=== PATIENT | female | born 1950 | race Caucasian/White ===

== ENCOUNTER 2017-01-23 15:59 | Inpatient (IN) | payer MEDICARE ==
[~2017-01-23] VITALS: Ht 154.9 cm; Wt 58.2 kg
[~2017-01-23 15:59] MED LIST: ACET-2321 PO; ALBU8.5H INH; CRAN200C4; DOXY100C40 PO; GLIM1TAB2 PO; IBUP-1724 PO; METF-200 PO; PRAV40TA46 PO
--- OUTSIDE RECORDS SUMMARY | 2017-01-23 16:04 | XMS REPORT | Continuity of Care Document ---
Author Author [facility] Organization [facility] Address Unknown Phone Unavailable Allergies Medications Problems Procedures Results Encounters ACCT No. Visit Date/Time Discharge Status Pt. Type Provider Facility Loc./Unit Complaint [id number] 12/07/2013 07:59:00 12/07/2013 23 :59:59 CLS Outpatient
--- OUTSIDE RECORDS SUMMARY | 2017-01-23 16:04 | XMS REPORT | Continuity of Care Document ---
Author Author [facility] Address Unknown Phone Unavailable Care Team Providers Care Rehab Liaison Name Role Phone ELISA GRAY MD Primary Care Physician [phone] Insurance Providers Guarantor Christie Mejias Address [address] [place] [address] Email [email or web address] Payer Medicare Policy Number [id number] Subscriber's Name Jose DChristie Relationship 18 Self Payer [facility] Policy Number [id number] Subscriber's Name Christie Mejias Aysha Relationship 18 Self Group Number [id number] Chief Complaint and Reason for Visit Chief Complaint Female Urogenital Problems Reason for Visit Fever Tachycardia Vomiting Problems Active Problems Medical Problem Onset Date Status Pedersen's palsy Unknown Acute Past Problems Medical Problem Onset Date Acute bronchitis Unknown Fever Unknown Tachycardia Unknown Vomiting Unknown Medications Current Home Medications Medication Dose Units Route Directions Days Qty Instructions Start Date Acetaminophen (Tylenol) 325 Mg Tablet 1 Tab Oral Every 4 Hours Prn 30 Tablet 01/23/17 Cranberry Extract (Cranberry) 200 Mg Capsule 01/23/17 Glimepiride 1 Mg Tablet 1 Tab Oral Twice A Day BEST TAKEN WITH BREAKFAST. 07/16/15 Ibuprofen 200 Mg Tablet 1 Tab Oral Every 4 Hours as needed for Pain 01/23/17 Metformin Hcl 500 Mg Tablet 1,000 Mg Oral Twice A Day 07/29/09 Pravastatin Sodium 40 Mg Tablet 40 Mg Oral Twice A Day 07/14/12 Past Home Medications Medication Directions Ordered Status Pravastatin Sodium 20 Mg Tablet, 20 Mg Oral Daily 07/29/09 Discontinued Social History Social History Problem Response Recorded Date/Time Onset Date Status Chewing Tobacco Status No 07/22/2012 2:24pm Not Applicable Not Applicable Hx Substance Use No 07/16/2015 5:20pm Not Applicable Not Applicable Hx Alcohol Use Y wine 1xmonth 07/16/2015 5:20pm Not Applicable Not Applicable Has the pt used tobacco in the last 12 months No 07/15/2012 6:33am Not Applicable Not Applicable Tobacco Usage none 07/16/2015 6:48pm Not Applicable Not Applicable Hospital Discharge Instructions No hospital discharge instructions. Plan of Care Discharge Date 01/23/17 3:40pm Disposition [address] [facility] Condition at Discharge Stable Prescriptions See Medication Section Referrals ELISA GRAY MD Address: [address] [place] [address] [phone] Additional Instructions/Education Go to [facility] emergency department from here. Functional Status No functional status results. Allergies, Adverse Reactions, Alerts Allergen Type Severity Reaction Status Last Updated No Known Drug Allergies Allergy Unknown Active 01/23/17 Immunizations Query Response on File Recorded Date/Time Hx Influenza Vaccination Y JUN 2012 07/16/15 5:20pm Hx Pneumococcal Vaccination Yes 07/16/15 5:20pm Hx Influenza Vaccination Y JUN 2012 07/16/15 5:20pm Influenza Vaccine Hx FEBRUARY 2016 01/23/17 3:25pm Vital Signs Acute Vital Signs Vital Response Date/Time Temperature (Fahrenheit) 99.4 deg F (96.8 - 99.1) 01/23/2017 3:16pm Temperature (Calculated Celsius) 37.06231 degrees C (36.0 - 37.3) 01/23/2017 3:16pm Pulse Rate (adult) 130 bpm (60 - 100) 01/23/2017 3:16pm Respiratory Rate 20 breaths/min (10 - 20) 01/23/2017 3:16pm O2 Sat by Pulse Oximetry 96 % (90 - 100) 01/23/2017 3:16pm Blood Pressure 109/76 mm Hg 01/23/2017 3:16pm Height (Feet) 4 feet 01/03/2017 11:38am Height (Inches) 60.50 inches 01/23/2017 3:16pm Weight (Kilograms) 54.400 kg 01/23/2017 3:16pm Body Mass Index (BMI) 23.0 01/23/2017 3:16pm Results No known relevant diagnostic tests, laboratory data and/or discharge summary. Procedures No known history of procedures. Encounters Encounter Location Arrival/Admit Date Discharge/Depart Date Attending Provider Departed Emergency Room [facility] 01/23/17 3:15pm 01/23/17 3: 40pm TODD JOSUE APRN Departed Emergency Room [facility] 01/03/17 10:20am 01/03/17 11: 47am SALIMA CADET APRN Recent Diagnosis
--- NOTE | 2017-01-23 16:10 | NUR ---
PROVIDER Mike CARLTON SERVICE TESTER IN TO SEE PATIENT.
[2017-01-23] MEDS ORDERED: CRAN425C PO (16:14)
[2017-01-23] MEDS ORDERED: ACET-2890 PO (16:14)
[2017-01-23] MEDS ORDERED: NORMAL SALINE 1,000 ML IV ONE (16:15)
[2017-01-23] MEDS ORDERED: GLIM4TAB3 PO (16:16)
--- NOTE | 2017-01-23 16:25 | ERPDOC ---
Departure Disposition Decision Date: Jan 23, 2017 Disposition Decision Time: 18:45 Disposition: 02 TO [facility] Impression Impression Impression: Primary Impression: Sepsis Sepsis type: sepsis due to unspecified organism Qualified Codes: A41.9 - Sepsis, unspecified organism Additional Impression: UTI (urinary tract infection) Urinary tract infection type: acute cystitis Severity: Mild Condition: Stable Seen By: Mid-level only Referrals: ELISA GRAY MD (PCP/Family) Problems/Meds/Labs Reviewed?: Yes Medications reviewed and manag: Yes Follow up care ordered?: Yes Mental Status: Alert HPI - Fever General Chief Complaint: Fever Stated Complaint: FEVER,VOMITING,POSS UTI Time Seen by Provider: 16:03 Source: patient Exam Limitations: no limitations HPI - Fever Initial Comments Christie was seen initially at the [facility] clinic and was directed to report to the Emergency Department. Today she had a fever of 104.7. She took a cold shower prior to coming to the ED. She reports vomiting yesterday and also today. She also has dysuria and believes she has a urinary tract infection. She is still eating and drinking well, however she is very thirsty. She also reports increase in sciatica pain to her right side. She denies being around anyone else who has been ill. She denies chest pain or shortness of air. She denies bloody emesis or stool, also denies diarrhea. She has no significant PMH other than diabetes. She was recently treated for Bronchitis at the [facility], she is still coughing up some sputum. Occurred At: home Onset: Gradual Duration: 12-24 hrs Fever Quality: low grade Associated Symptoms: nausea/vomiting Allergies: Coded Allergies: No Known Drug Allergies (Verified Allergy, Unknown, 01/23/17) Past History Patient Medical History Problem List Updates: Diabetes Mellitus Patient Surgical History Bunionectomies vaginal prolapse repair tubal ligation adhesion repair hysterectomy cholecystectomy Past Medical History Metabolic: diabetes, hypercholesterolemia Surgical History General: gallbladder Reproductive/: hysterectomy, tubal ligation Joint: foot Family History Family PMH: FOUND: diabetes, other Vaccines Hx Influenza Vaccination: Yes (JUN 2012) Hx Pneumococcal Vaccination: Yes Social History Smoking Status: Never smoker Second Hand Exposure: Yes (HX ) Substance Use Type: does not use Alcohol Intake: occasionally Review of Systems Constitutional Constitutional: chills, fever Pulmonary Respiratory: cough, sputum General: burning, dysuria Musculoskeletal General: pain (sciatica) All other Systems All Other Systems: Reviewed and Negative Physical Exam General General Nourishment: well nourished General Body Habitus: well groomed Vitals and Pain First Documented Vital Signs Date Time Temp Pulse Resp B/P Pulse Ox O2 Delivery O2 Flow Rate FiO2 01/23/17 16:01 99.3 112 24 126/57 96 Room Air Weight: Kilograms: 56.100 Height (feet): 5 Height (inches): 3.00 Triage Pain Scale: Normal Exams: Head: Normocephalic w/o trauma Chest/Resp: Clear all abdul CV: Regular rate and rhythm, Pulses 2+ all extremities, no pedal edema noted Abdomen: Bowel sounds positive, soft, non-tender Integumentary: No rashes Neurologic: Patient is alert, and oriented Eyes (brief) Eyes Brief: found: EOMI Integumentary (brief) Integumentary Brief: FOUND: dry, pink, warm Psychiatric (brief) Psychiatric Brief: FOUND: alert, normal affect, oriented Differential Diagnoses Considering: Chronic Bronchitis, Pyelonephritis, UTI Progress Results/Orders Orders Procedure Category Date Status Time Lactate - Lactic Acid LAB 01/23/17 Complete 16:09 Blood Culture CARISSA 01/23/17 In Process 16:09 Cbc W/Auto LAB 01/23/17 Complete Diff-Reflex Manual 16:09 Cmp - Comprehensive LAB 01/23/17 Complete Metabolic 16:09 Procalcitonin LAB 01/23/17 Complete 16:09 Iv Lock (Ed Only) EDM 01/23/17 Transmitted 16:09 Chest, Pa & Lateral RAD 01/23/17 Taken 16:09 Normal Saline (Normal PHA 01/23/17 Complete Saline Iv) 16:15 Ceftriaxone I.V. (Er PHA 01/23/17 Complete Use Only) (Rocephin 17:30 UA, LAB 01/23/17 In Process Dip&Micro(Complete) & 18:26 Lab Results Laboratory Tests Test 01/23/17 16:25 01/23/17 16:31 01/23/17 18:26 White Blood Count 14.9T/MM3 Red Blood Count 4.28M/MM3 Hemoglobin 12.6GM/DL Hematocrit 37.5% Mean Corpuscular Volume 87.6UM3 Mean Corpuscular Hemoglobin 29.4UUG Mean Corpuscular Hemoglobin Concent 33.6GM/DL RDW Standard Deviation 42.3FL Platelet Count 274T/MM3 Mean Platelet Volume 9.5UM3 Immature Granulocyte % (Auto) % Neutrophils (%) (Auto) % Lymphocytes (%) (Auto) % Monocytes (%) (Auto) % Eosinophils (%) (Auto) % Basophils (%) (Auto) % Absolute Immature Granulocyte (auto T/MM3 Absolute Neutrophils (auto) T/MM3 Absolute Lymphocytes (auto) T/MM3 Absolute Monocytes (auto) T/MM3 Absolute Eosinophils (auto) T/MM3 Absolute Basophils (auto) T/MM3 Neutrophils % (Manual) 82.0% Band Neutrophils % 6.0% Lymphocytes % (Manual) 1.0% Monocytes % (Manual) 11.0% Absolute Neutrophils (Manual) 12.2T/MM3 Band Neutrophils # 0.9T/MM3 Lymphocytes # (Manual) 0.1T/MM3 Monocytes # (Manual) 1.6T/MM3 Red Cell Morphology Comment Normal Turbidity < 20 Sodium Level 139MEQ/L Potassium Level 4.4MEQ/L Chloride Level 104MEQ/L Carbon Dioxide Level 23MEQ/L Anion Gap 12MEQ/L Blood Urea Nitrogen 20.0MG/DL Creatinine 1.0MG/DL Glomerular Filtration Rate Calc 55 BUN/Creatinine Ratio 20RATIO Glucose Level 292MG/DL Calculated Osmolality 282MOSM/KG Calcium Level 9.7MG/DL Total Bilirubin 1.10MG/DL Icterus Index < 2 Aspartate Amino Transf (AST/SGOT) 85U/L Alanine Aminotransferase (ALT/SGPT) 111U/L Alkaline Phosphatase 118U/L Total Protein 5.9G/DL Albumin 3.3G/DL Globulin 2.6G/DL Albumin/Globulin Ratio 1.3RATIO Plasma Lactate 2.0MMOL/L Procalcitonin 5.72NG/ML Chemistry Specimen Hemolysis 36 Urine Collection Type Urine Color Yellow Urine Turbidity Cloudy Urine pH 6.0 Urine Specific [place] <=1.005 Urine Protein 1+ Urine Glucose (UA) Trace Urine Ketones Negative Urine Blood 2+ Urine Nitrite Positive Urine Bilirubin Negative Urine Urobilinogen 0.2EU/DL Urine Leukocyte Esterase 3+ Urine RBC 20-30/HPF Urine WBC 30-50/HPF Urine Squamous Epithelial Cells 0-5 Urine Bacteria 2+ Urine Culture Indicated Cult reflexed &setup Medications Current ED Medications Sodium Chloride 1,000 ml @ 999 mls/hr Q1H1M ONCE IV Last administered on 16:34; Start 01/23/17 at 16:15; Stop 01/23/17 at 17:15; Status DC Ceftriaxone Sodium/Sodium Chloride (Rocephin/NS) 100 ml @ 100 mls/hr O ONCE IV Last administered on 01/23/17 17:40; Start 01/23/17 at 17:30; Stop at 18:29; Status DC Progress Progress 1840- patient meets sepsis criteria including urinary tract infection, tachycardia, leukocytosis, elevated Pro calcitonin. Following 1 liter of IV fluid. She continues to be tachycardic 105-110. 1850- Spoke with Dr Joshi Tele hospitalist. He will admit for sepsis and UTI. HAILEY CARLTON APRN Jan 23, 2017 16:25
--- OUTSIDE RECORDS SUMMARY | 2017-01-23 16:30 | XMS REPORT | Continuity of Care Document ---
Author Author [facility] Organization [facility] Address Unknown Phone Unavailable Allergies Medications Problems Procedures Results Encounters ACCT No. Visit Date/Time Discharge Status Pt. Type Provider Facility Loc./Unit Complaint [id number] 12/07/2013 07:59:00 12/07/2013 23 :59:59 CLS Outpatient
[2017-01-23 16:42] LABS: HCT - HEMATOCRIT 37.5 % (36-46); HGB - HEMOGLOBIN 12.6 GM/DL (12-16); MEAN CORPUSCULAR HGB 29.4 UUG (26-34); MEAN CORPUSCULAR HGB CONC(MCHC 33.6 GM/DL (31-37); MEAN CORPUSCULAR VOLUME 87.6 UM3 (80-100); MEAN PLATELET VOLUME 9.5 UM3 (9.4-12.4); RED BLOOD COUNT 4.28 M/MM3 (4.00-5.20); WBC - WHITE BLOOD COUNT 14.9 T/MM3 (4.5-11.0)
--- NOTE | 2017-01-23 16:49 | NUR ---
TO XRAY PER CART.
[2017-01-23 16:54] LABS: ALBUMIN 3.3 G/DL (3.5-5.0); ALBUMIN/GLOBULIN RATIO 1.3 RATIO (1.1-2.2); ALKALINE PHOSPHATASE 118 U/L (38-126); ALT (SGPT) 111 U/L (9-52); ANION GAP 12 MEQ/L (5-15); AST (SGOT) 85 U/L (14-36); BUN/CREATININE RATIO 20 RATIO (6-26); CALCIUM 9.7 MG/DL (8.4-10.2); CHLORIDE 104 MEQ/L (98-107); CO2 - CARBON DIOXIDE 23 MEQ/L (22-30); GLOMERULAR FILTRATION RATE 55; GLUCOSE 292 MG/DL (65-110); POTASSIUM 4.4 MEQ/L (3.6-5); SODIUM 139 MEQ/L (134-144); TOTAL PROTEIN 5.9 G/DL (6.3-8.2)
[2017-01-23 17:00] LABS: BAND NEUTROPHILS # 0.9 T/MM3; LYMPHOCYTES # (MANUAL) 0.1 T/MM3 (1-4.8); MONOCYTES # (MANUAL) 1.6 T/MM3 (0-0.8); NEUTROPHILS #(MANUAL)-ABSOLUTE 12.2 T/MM3 (1.8-7.7); TOTAL CELLS COUNTED 100 %
--- NOTE | 2017-01-23 17:00 | NUR ---
BACK FROM XRAY
--- NOTE | 2017-01-23 17:09 | NUR ---
ELIMINATION PATIENT UP TO BR TO ATTEMPT TO VOID. UNABLE TO URINATE AT THIS TIME. PATIENT STATED THAT SHE WOULD WAIT A LITTLE BIT AND THAN TRY AGAIN LATER.
[2017-01-23] MEDS ORDERED: CEFTRIAXONE I.V. (ER USE ONLY) 1 G in NORMAL SALINE 100 ML IV ONE (17:30)
[2017-01-23 18:33] LABS: BLOOD, URINE 2+ (NEGATIVE); COLOR,URINE YELLOW (YELLOW); LEUKOCYTE ESTERASE ,URINE 3+ (NEGATIVE); NITRITE,URINE POSITIVE (NEGATIVE); UROBILINOGEN,URINE 0.2 EU/DL (NORMAL)
[2017-01-23 18:42] LABS: BACTERIA,URINE 2+ (NEGATIVE); RBC,URINE 20-30 /HPF (0-3); SQUAMOUS EPITHELIAL CELL,UR 0-5; WBC,URINE 30-50 /HPF (0-5)
[2017-01-23] MEDS ORDERED: ONDANSETRON 4mg/2ml INJECTION IV PRN (19:00)
[2017-01-23] MEDS ORDERED: GLUCOSE ORAL GEL 40% 37.5 G TUBE PO PRN (19:00)
[2017-01-23] MEDS ORDERED: DEXTROSE 50% SYRINGE 50ml (Eq. 1 AMP) IV PRN (19:00)
[2017-01-23] MEDS ORDERED: HYDROMORPHONE 2mg/ml INJECTION IV PRN (19:00)
[2017-01-23] MEDS ORDERED: KETOROLAC 30mg/ml INJECTION IV ONE (19:00)
[2017-01-23] MEDS ORDERED: HYDROCODONE/APAP 5 mg/325 mg TABLET PO PRN (19:00)
--- OUTSIDE RECORDS SUMMARY | 2017-01-23 19:07 | XMS REPORT | Continuity of Care Document ---
Author Author [facility] Organization [facility] Address Unknown Phone Unavailable Allergies Medications Problems Procedures Results Encounters ACCT No. Visit Date/Time Discharge Status Pt. Type Provider Facility Loc./Unit Complaint [id number] 12/07/2013 07:59:00 12/07/2013 23 :59:59 CLS Outpatient
--- NOTE | 2017-01-23 19:20 | NUR ---
ADMIT PT ADMIT FROM ER @ 1920, BROUGHT TO ROOM VIA CART WALKED FROM CART TO BED. PT ORIENTED TO ROOM AND EQUIPMENT. AT BEDSIDE.
[2017-01-23 19:30] VITALS: Ht 154.9 cm; Wt 58.2 kg
[2017-01-23] MEDS: NORMAL SALINE 1,000 ML IV SCH (20:15)
--- NOTE | 2017-01-23 20:18 | DI ---
INDICATION: ITS.REASON: FEVER PROCEDURE: CHEST 2-VIEWS UPRIGHT (PA \T\ LAT) Encounter: Initial COMPARISON: None FINDINGS: The lungs are clear without evidence of focal abnormal airspace opacity. There is no pleural effusion or pneumothorax. The heart size, mediastinal contours and pulmonary vascularity are within normal limits. There is no significant skeletal abnormality. IMPRESSION: No acute cardiopulmonary disease. .
[2017-01-23 21:32] VITALS: BP 97/59; PULSE 100; RESP 16; TEMP 99; O2SAT 96
[2017-01-23 21:48] VITALS: PULSE 76; RESP 16; O2SAT 97
[2017-01-23] MEDS: INSULIN ASPART 100 UNIT/ML SQ PRN (21:55)
--- NOTE | 2017-01-23 22:13 | HPPDOC ---
VENKATESH VILLAFANA MD 01/23/17 2206: HPI - Adult Date DATE: 01/23/17 TIME: 21:46 General Chief Complaint: fever History of Present Illness This is a 66-year-old female who has just manage being treated for an upper respiratory infection that she has suffered from past 3 weeks. The patient probably visited [place] returned with her respiratory symptoms. Over the past 3-4 days the patient had increasing bladder spasm and frequency of urination. The patient had fevers as high as 104 at home. The patient presents to an outpatient clinic and is referred to the emergency department for evaluation. In the emergency department the patients urine is definitely infected. Examination does describe some right CVA tenderness. The patients lab work is consistent with sepsis. The patients to be admitted for IV fluids , IV antibiotics, and further assessment in the morning. Past Medical History Past Medical History Diabetes Mellitus sciatica right side Surgical History Patient's Surgical History: Bunionectomies vaginal prolapse repair tubal ligation adhesion repair hysterectomy cholecystectomy Current Medications Home Meds Reported Medications Glimepiride (Glimepiride) 4 Mg Tablet, 4 MG PO DAILY 01/23/17 Cranberry Extract (Cranberry) Unknown Strength Capsule, PO DAILY 01/23/17 Acetaminophen (Acetaminophen) 650 Mg Tablet.er, 1300 MG PO Q8H Y for PAIN 01/23/17 Ibuprofen (Ibuprofen) 200 Mg Tablet, 600 MG PO Q6H Y for PAIN 01/23/17 Pravastatin Sodium (Pravastatin Sodium) 40 Mg Tablet, 40 MG PO HS 07/14/12 Metformin Hcl (Metformin Hcl) 500 Mg Tablet, 1000 MG PO BID 07/29/09 Allergies: Coded Allergies: No Known Drug Allergies (Verified Allergy, Unknown, 01/23/17) Family History Family History: mother DM1 father leukemia brother CAD sister lung cancer Social History Smoking Status: Never smoker Second Hand Exposure: Yes (HX ) Substance Use Type: does not use Alcohol Intake: occasionally Advance Directives: No DPOA for Healthcare Only Review of Systems All Other Systems All Other Systems: Reviewed (remainder of 10-point ROS Neg.) Comments No headache, no change in vision, no sore throat or difficulty swallowing, no neck or jaw pain, has a cough still productive at times, mild shortness of breath, no chest pains, patient has slight nausea without emesis, patient has right-sided back pain which has been present for the past 2 weeks. The patient denies any change in bowel movement, has had increasing frequency of urination with pain with urination, no edema to legs, no neurological complaints, no skin rashes, temperature is systems is otherwise negative except for described above Physical Exam General General Nourishment: well nourished, well developed, apparent age, adult General Body Habitus: well groomed Vital Signs Vital Signs Date Time Temp Pulse Resp B/P Pulse Ox O2 Delivery O2 Flow Rate FiO2 01/23/17 21:32 99.0 100 16 97/59 96 01/23/17 16:42 Room Air Height (Feet): 5 Height (Inches): 1.00 Telemetry Rhythm: Sinus Rhythm Eyes Brief: FOUND: EOMI, NOT FOUND: scleral icterus Neck Brief: FOUND: midline, NOT FOUND: JVD, nuchal rigidity, other, spasm, tenderness, tracheal deviation Respiratory Brief: FOUND: clear all abdul, equal bilaterally, NOT FOUND: other , rales, spasm, symmetrical, tenderness, wheezes Cardiovascular (brief) Cardiac Brief: FOUND: regular rate, regular rhythm, NOT FOUND: click, gallop, murmur, other, pedal edema, peripheral edema, rub Capillary Refill: <2 sec Abdomen (brief) Abdominal Brief: FOUND: soft Comments mild right flank tender on palpation Musculoskeletal (brief) Musculoskeletal Brief: FOUND: spasm Comments right flank Neurologic (brief) Comments no focal findings Neurologic RN Documented GCS Eye Opening: Verbal: Motor: Total: Psychiatric (brief) FOUND: alert, normal affect, oriented Laboratory Laboratory Tests Test 01/23/17 16:25 01/23/17 16:31 01/23/17 18:26 White Blood Count 14.9T/MM3 Red Blood Count 4.28M/MM3 Hemoglobin 12.6GM/DL Hematocrit 37.5% Mean Corpuscular Volume 87.6UM3 Mean Corpuscular Hemoglobin 29.4UUG Mean Corpuscular Hemoglobin Concent 33.6GM/DL RDW Standard Deviation 42.3FL Platelet Count 274T/MM3 Mean Platelet Volume 9.5UM3 Immature Granulocyte % (Auto) % Neutrophils (%) (Auto) % Lymphocytes (%) (Auto) % Monocytes (%) (Auto) % Eosinophils (%) (Auto) % Basophils (%) (Auto) % Absolute Immature Granulocyte (auto T/MM3 Absolute Neutrophils (auto) T/MM3 Absolute Lymphocytes (auto) T/MM3 Absolute Monocytes (auto) T/MM3 Absolute Eosinophils (auto) T/MM3 Absolute Basophils (auto) T/MM3 Neutrophils % (Manual) 82.0% Band Neutrophils % 6.0% Lymphocytes % (Manual) 1.0% Monocytes % (Manual) 11.0% Absolute Neutrophils (Manual) 12.2T/MM3 Band Neutrophils # 0.9T/MM3 Lymphocytes # (Manual) 0.1T/MM3 Monocytes # (Manual) 1.6T/MM3 Red Cell Morphology Comment Normal Turbidity < 20 Sodium Level 139MEQ/L Potassium Level 4.4MEQ/L Chloride Level 104MEQ/L Carbon Dioxide Level 23MEQ/L Anion Gap 12MEQ/L Blood Urea Nitrogen 20.0MG/DL Creatinine 1.0MG/DL Glomerular Filtration Rate Calc 55 BUN/Creatinine Ratio 20RATIO Glucose Level 292MG/DL Calculated Osmolality 282MOSM/KG Calcium Level 9.7MG/DL Total Bilirubin 1.10MG/DL Icterus Index < 2 Aspartate Amino Transf (AST/SGOT) 85U/L Alanine Aminotransferase (ALT/SGPT) 111U/L Alkaline Phosphatase 118U/L Total Protein 5.9G/DL Albumin 3.3G/DL Globulin 2.6G/DL Albumin/Globulin Ratio 1.3RATIO Plasma Lactate 2.0MMOL/L Procalcitonin 5.72NG/ML Chemistry Specimen Hemolysis 36 Urine Collection Type Urine Color Yellow Urine Turbidity Cloudy Urine pH 6.0 Urine Specific [place] <=1.005 Urine Protein 1+ Urine Glucose (UA) Trace Urine Ketones Negative Urine Blood 2+ Urine Nitrite Positive Urine Bilirubin Negative Urine Urobilinogen 0.2EU/DL Urine Leukocyte Esterase 3+ Urine RBC 20-30/HPF Urine WBC 30-50/HPF Urine Squamous Epithelial Cells 0-5 Urine Bacteria 2+ Urine Culture Indicated Cult reflexed &setup Sepsis Diagnostic Criteria Sepsis Confirmed/Suspected Infection: Yes SIRS Criteria: Pulse >= 90 beats/min, WBC >=12,000 or <=4,000 Assessment & Plan Assessment 1. UTI acute present on admission: Rocephin, IV fluids, adjust per cultures, cannot exclude the possibility of pyelonephritis given the right flank pain. Patient equated this with sciatica, but there is a chance this is Pyelonephritis , if patient does not rapidly improve, consider CT of the abdomen and pelvis to further assess for obstructive uropathy 2. Sepsis acute present on admission: Lactic acid is 2, IV fluids, repeat sepsis markers in the morning, repeat lactic acid in the morning. 3. Type 2 diabetes mellitus chronic present on admission: Oral agents. Well hold for now. Correctional plan. Adjust as indicated 4. Transaminitis acute present on admission: Not clear if acute or not, IV fluids, repeat labs in the morning, if persists, consider imaging of liver and/ or gallbladder 5. DVT prophylaxis: SCD Code Status Full Code, unverified Hospital Course Summary Disclaimer The hospital course summary below is not to be considered part of the above Progress Note. SYLWIA ARTEAGA MD 01/24/17 1038: Past Medical History Current Medications Home Meds Reported Medications Glimepiride (Glimepiride) 4 Mg Tablet, 4 MG PO DAILY 01/23/17 Cranberry Extract (Cranberry) Unknown Strength Capsule, PO DAILY 01/23/17 Acetaminophen (Acetaminophen) 650 Mg Tablet.er, 1300 MG PO Q8H Y for PAIN 01/23/17 Ibuprofen (Ibuprofen) 200 Mg Tablet, 600 MG PO Q6H Y for PAIN 01/23/17 Pravastatin Sodium (Pravastatin Sodium) 40 Mg Tablet, 40 MG PO HS 07/14/12 Metformin Hcl (Metformin Hcl) 500 Mg Tablet, 1000 MG PO BID 07/29/09 Allergies: Coded Allergies: No Known Drug Allergies (Verified Allergy, Unknown, 01/23/17) Assessment & Plan Assessment 01/24/2017-Dr. Arteaga I have reviewed the H&P above by Dr. Villafana. I have seen and examined the patient independently. Please see my additions to the H&P below. Chief complaint is fevers, weakness, bladder spasms History of present illness: Patient is a very pleasant 66-year-old female who was seen in her room this morning accompanied by her . She has been battling an upper respiratory infection for the past 3 weeks. She is gradually getting better but still coughing up phlegm. She has had 3 day history of bladder spasms and urinary frequency. She's also developed some right CVA tenderness. She developed a fever of 104. She had also been battling recently some probable sciatica with low back pain and pain radiating down the right leg. She has been seeing a chiropractor for this and states that yesterday her symptoms have become much better. Because of the above symptoms the patient was seen in the emergency room and found to have sepsis and UTI and started on Rocephin. Overnight urine culture is positive for Escherichia coli and one of 2 blood cultures are positive for Escherichia coli. The patient states she is feeling much better today. She is eating and drinking well. She denies any lightheadedness. She denies any shortness of breath. She continues to have her cough that she has had for about 3 weeks, but it is progressively improving. She denies any nausea, vomiting or diarrhea. She states she has a tendency towards developing constipation. She states that the past few days her blood sugars have been high. Past medical history, family history, review of systems are reviewed from H&P above and unchanged Physical exam Temp this morning is 99.3, blood pressure 133/69, O2 sat is 98% on room air, heart rate 91 GEN-alert, oriented, no acute distress. The patient is a good historian. HEENT-sclera anicteric, pupils equal, oropharynx is moist NECK-supple, no carotid bruits CV-borderline tachycardic rate with irregular rhythm CHEST-clear to auscultation bilaterally ABD-soft, nontender, nondistended with positive bowel sounds -no [place] EXT-no edema NEURO-no focal deficits SKIN-warm and dry and without rashes Chest x-ray shows no acute cardiopulmonary abnormalities Laboratory reveals basic metabolic profile to be essentially normal. Lactate improved from 1.9-1.2. CBC reveals white count improving from 14.9 down to 12.7. Neutrophils are 81% this morning. Hemoglobin is 11.5. AST was 85 and ALT 111 yesterday. Urine culture is positive for Escherichia coli and one of 2 blood cultures positive for Escherichia coli Impression Sepsis UTI with Escherichia coli/possible right pyelonephritis Bacteremia with one of 2 blood cultures positive for Escherichia coli Diabetes mellitus-on oral medications at home Mild elevated liver enzymes Sciatica-improving Plan Add Levaquin to Rocephin. Await culture results. If sensitive to Levaquin could consider continuing Levaquin. The patient will likely need 2 weeks of antibiotics in light of her bacteremia. Recheck blood cultures tomorrow. Restart glimepiride, hold metformin for now. Give sliding scale insulin if needed Recheck liver enzymes tomorrow and if improved can likely restart pravastatin CBC with differential and CMP tomorrow Walk-in halls 3 times a day to prevent weakness DC IV fluids if taking by mouth well Monitor for worsening of sciatica, at this time it is improving DVT Prophylaxis: SCD'S VENKATESH VILLAFANA MD Jan 23, 2017 22:06 SYLWIA ARTEAGA MD Jan 24, 2017 10:38
[2017-01-23 23:01] VITALS: RESP 18
[2017-01-23 23:26] VITALS: BP 120/70; PULSE 93; RESP 18; TEMP 97.9; O2SAT 97
[2017-01-24] VITALS (9 sets, daily range): BP systolic 105–133; BP diastolic 59–69; PULSE 86–111; RESP 14–32; TEMP 98.3–103.5; O2SAT 95–100
--- NOTE | 2017-01-24 03:54 | NUR ---
SUMMARY PT IS ALERT AND ORIENTED. AMBULATES INDEPENDENTLY IN ROOM. KNOWS TO CALL FOR ASSISTANCE IF NEEDED. IV IN THE LEFT AC, RUNNING NS AT 125ML/HR. VSS, AFEBRILE. PT REPORTED A HEADACHE, 5/10 NORCO GIVEN ORDERED. PT HAS BEEN RESTING QUIETLY BED, SCD'S IN PLACE.
[2017-01-24] MEDS: NORMAL SALINE 1,000 ML IV SCH ×2 (04:48→16:34)
[2017-01-24 05:02] LABS: BASOPHILS % (AUTO) 0.2 % (0-2); EOSINOPHILS # (AUTO) 0.1 T/MM3 (0-0.5); EOSINOPHILS % (AUTO) 0.9 % (0-4); HCT - HEMATOCRIT 34.9 % (36-46); HGB - HEMOGLOBIN 11.5 GM/DL (12-16); IMMATURE GRANULOCYTE # (AUTO) 0.03 T/MM3 (0.00-0.03); IMMATURE GRANULOCYTE % (AUTO) 0.2 % (0.0-0.5); LYMPHOCYTES % (AUTO) 7.8 % (23-45); MEAN CORPUSCULAR HGB 29.3 UUG (26-34); MEAN CORPUSCULAR VOLUME 88.8 UM3 (80-100); MEAN PLATELET VOLUME 9.9 UM3 (9.4-12.4); MONOCYTES # (AUTO) 1.2 T/MM3 (0-0.8); MONOCYTES % (AUTO) 9.3 % (0-9.0); NEUTROPHILS #(AUTO)-ABSOLUTE 10.4 T/MM3 (1.8-7.7); NEUTROPHILS % (AUTO) 81.6 % (33-66); RED BLOOD COUNT 3.93 M/MM3 (4.00-5.20); WBC - WHITE BLOOD COUNT 12.7 T/MM3 (4.5-11.0)
[2017-01-24 05:19] LABS: ANION GAP 11 MEQ/L (5-15); BUN/CREATININE RATIO 16 RATIO (6-26); CALCIUM 8.9 MG/DL (8.4-10.2); CHLORIDE 106 MEQ/L (98-107); CO2 - CARBON DIOXIDE 24 MEQ/L (22-30); GLOMERULAR FILTRATION RATE 55; GLUCOSE 197 MG/DL (65-110); LACTATE - LACTIC ACID 1.2 MMOL/L (0.6-2.2); POTASSIUM 4.1 MEQ/L (3.6-5); SODIUM 141 MEQ/L (134-144)
[2017-01-24] MEDS: INSULIN ASPART 100 UNIT/ML SQ PRN ×4 (06:11→22:07)
[2017-01-24] MEDS ORDERED: CEFTRIAXONE I.V. (ER USE ONLY) 1 G in NORMAL SALINE 100 ML IV ONE (09:00)
[2017-01-24] MEDS ORDERED: METOCLOPRAMIDE 10mg/2ml INJECTION IV PRN (10:15)
[2017-01-24] MEDS: LEVOFLOXACIN 750 mg IVPB 750 MG in D5W 150 ML IV SCH (10:50)
[2017-01-24] MEDS: POLYETHYL.GLYCOL 3350 PACKET 17gm PO SCH (10:55)
[2017-01-24] MEDS: GLIMEPIRIDE 4 MG TABLET PO SCH (12:36)
[2017-01-24] MEDS: ACETAMINOPHEN 325 MG TABLET PO PRN ×2 (14:21→20:20)
--- NOTE | 2017-01-24 18:21 | NUR ---
status Pt A/O x3, V/S stable on RA. Pt ambulating well up at isac, walking in halls to relieve sciatica. Denies SOA or dizziness. Pt denies need for any PRN pain meds, PRN tylenol given for elevated temp, down after given. Urine output good, no BM today.
[2017-01-24] MEDS ORDERED: SORE THROAT SPRAY 20ml PO PRN (19:45)
[2017-01-24] MEDS: BENZONATATE 100 MG CAPSULE PO PRN (20:12)
[2017-01-25] VITALS (8 sets, daily range): BP systolic 136–153; BP diastolic 67–86; PULSE 88–108; RESP 18; TEMP 96.8–101.7; O2SAT 95–100
[2017-01-25] MEDS: ACETAMINOPHEN 325 MG TABLET PO PRN ×2 (02:36→19:05)
--- NOTE | 2017-01-25 05:13 | NUR ---
summary a&o x3. up ad isac. adequate urine output. patient temp at 1999 was 103.5, patient was also tachypneic and tachycardic, prn tylenol given as charted--f/u temp 100.2. prn tylenol given again this shift for 101.7 temp. denies pain, n/v, soa. does report productive cough, prn Tessalon Perles given as charted. no additional concerns.
[2017-01-25 05:46] LABS: HCT - HEMATOCRIT 35.8 % (36-46); HGB - HEMOGLOBIN 11.8 GM/DL (12-16); MEAN CORPUSCULAR HGB 28.9 UUG (26-34); MEAN CORPUSCULAR VOLUME 87.7 UM3 (80-100); MEAN PLATELET VOLUME 9.9 UM3 (9.4-12.4); RED BLOOD COUNT 4.08 M/MM3 (4.00-5.20); WBC - WHITE BLOOD COUNT 9.9 T/MM3 (4.5-11.0)
[2017-01-25 06:04] LABS: ALKALINE PHOSPHATASE 147 U/L (38-126); ALT (SGPT) 71 U/L (9-52); ANION GAP 10 MEQ/L (5-15); AST (SGOT) 52 U/L (14-36); BUN/CREATININE RATIO 15 RATIO (6-26); CHLORIDE 105 MEQ/L (98-107); CO2 - CARBON DIOXIDE 23 MEQ/L (22-30); GLOMERULAR FILTRATION RATE 55; GLUCOSE 269 MG/DL (65-110); POTASSIUM 4.8 MEQ/L (3.6-5); SODIUM 138 MEQ/L (134-144)
[2017-01-25] MEDS: INSULIN ASPART 100 UNIT/ML SQ PRN ×4 (06:06→22:07)
[2017-01-25 06:46] LABS: BAND NEUTROPHILS # 1.3 T/MM3; LYMPHOCYTES # (MANUAL) 0.4 T/MM3 (1-4.8); MONOCYTES # (MANUAL) 0.6 T/MM3 (0-0.8); NEUTROPHILS #(MANUAL)-ABSOLUTE 7.6 T/MM3 (1.8-7.7); TOTAL CELLS COUNTED 100 %
[2017-01-25] MEDS: LEVOFLOXACIN 750 mg IVPB 750 MG in D5W 150 ML IV SCH (08:39)
[2017-01-25] MEDS: POLYETHYL.GLYCOL 3350 PACKET 17gm PO SCH (08:39)
[2017-01-25] MEDS: GLIMEPIRIDE 4 MG TABLET PO SCH (08:39)
[2017-01-25] MEDS: CEFTRIAXONE 1 G in NORMAL SALINE 100 ML IV SCH (10:23)
--- NOTE | 2017-01-25 10:38 | NUR ---
Dm Screen Diet: CC 2000 Patient is checking blood sugars, following a diabetic diet, taking diabetes medication, and has indicated having had adequate diabetes education. Therefore DM screen is false positive.
[2017-01-25] MEDS ORDERED: MILK OF MAGNESIA 30 ML SUSP PO PRN (11:15)
[2017-01-25] MEDS: BENZONATATE 100 MG CAPSULE PO PRN ×2 (11:22→17:08)
--- NOTE | 2017-01-25 12:08 | NUR ---
BOWEL MOTIVATION PATIENT RECEIVED MIRALAX YESTERDAY AND THIS AM WITH NO RESULTS. MOM GIVEN. PATIENT REPORTS ABDOMINAL DISCOMFORT.
[2017-01-25] MEDS: BISACODYL 10 MG SUPPOSITORY RECTALLY PRN (13:23)
--- NOTE | 2017-01-25 13:36 | PNPDOC ---
Subjective Date DATE: 01/25/17 TIME: 13:20 Subjective F/U: Sepsis secondary to E coli UTI, Bacteremia with E coli, UTI Doing better-feeling less weak and washed out. Was up ambulating this am- strength returning. Did have fever/chills overnight. Appetite decrease, but working on taking plenty of fluids. No nausea or ab pain. Not had stool since admit. Urinating well. Does not some cough/congestion with breathing. No chest pressure or pain. Objective Vital Signs Vital signs Vital Signs Date Time Temp Pulse Resp B/P Pulse Ox O2 Delivery O2 Flow Rate FiO2 01/25/17 11:27 97.9 88 18 144/76 96 Room Air Telemetry Rhythm: Sinus Rhythm Height (Feet): 5 Height (Inches): 1.00 Weight (Kilograms): 61.300 General General Appearance: Alert, Orientated x 3, Well Nourished, Well Developed, Cooperative, Mild Distress, Looks Stated Age Eyes (Brief) Eyes: FOUND: EOMI, PERRL, NOT FOUND: scleral icterus ENMT (Brief) ENMT: FOUND: hearing intact, mucosa moist Neck (Brief) Neck: FOUND: midline, NOT FOUND: nuchal rigidity, spasm Respiratory (Brief) Respiratory: FOUND: clear all abdul, equal bilaterally, NOT FOUND: rales, wheezes Cardiovascular (Brief) Cardiac: FOUND: regular rate, regular rhythm, NOT FOUND: pedal edema Abdomen (Brief) Abdominal: FOUND: soft, NOT FOUND: BS normo active x4 (Slightly decreased ), distended, tender Extremities (Brief) Extremity : Side: Bilateral Extremity: leg Extremity Finding: NOT FOUND: edema Musculoskeletal (Brief) Musculoskeletal: FOUND: extremities move equally, NOT FOUND: deformity, spasm Integumentary (Brief) Integumentary: FOUND: dry, warm Neurologic (Brief) Neurological: FOUND: cranial 2-12 intact, motor (Intact ) Psychiatric (Brief) Psychiatric: FOUND: alert, attentive, normal affect, oriented Laboratory Laboratory Laboratory Tests 01/23/17 16:31 01/24/17 03:58 01/25/17 04:49 Laboratory Tests 01/23/17 16:25 01/24/17 03:58 01/25/17 04:49 Microbiology Microbiology Microbiology Date/Time Source Procedure Growth Status 01/25/17 04:50 Peripheral/Iv Start Blood Culture - Preliminary CULTURE INITIATED - RESULTS PENDING Resulted 01/25/17 04:49 Peripheral/Iv Start Blood Culture - Preliminary CULTURE INITIATED - RESULTS PENDING Resulted 01/23/17 16:31 Peripheral/Iv Start Gram Stain - Final Resulted 01/23/17 16:31 Blood Culture - Preliminary Escherichia Coli Resulted 01/23/17 16:25 Peripheral/Iv Start Blood Culture - Preliminary NO GROWTH AFTER 24 HOURS Resulted 01/23/17 18:43 Urine, Straight Cath Urine Culture - Final Escherichia Coli Complete Sepsis Diagnostic Criteria Sepsis Confirmed/Suspected Infection: Yes SIRS Criteria: Pulse >= 90 beats/min, WBC >=12,000 or <=4,000 Assessment & Plan Problems: (1) Sepsis Status: Acute Qualifiers: Sepsis type: Escherichia coli Qualified Codes: A41.51 - Sepsis due to Escherichia coli [e. coli] (2) UTI (urinary tract infection) Status: Acute Qualifiers: Urinary tract infection type: acute cystitis Hematuria presence: with hematuria Qualified Codes: N30.01 - Acute cystitis with hematuria (3) Bacteremia due to Escherichia coli Status: Acute (4) Type II diabetes mellitus Status: Chronic Qualifiers: Diabetes mellitus complication status: without complication Diabetes mellitus patent litigation associate insulin use: without assisted use Qualified Codes: E11.9 - Type 2 diabetes mellitus without complications (5) Elevated liver enzymes Status: Acute Assessment & Plan: POA (6) Hyperlipidemia Status: Chronic Qualifiers: Hyperlipidemia type: unspecified Qualified Codes: E78.5 - Hyperlipidemia, unspecified Assessment & Plan: On Pravastatin - currently on hold due to elevated LFT. (7) Osteoarthritis Status: Chronic Qualifiers: Osteoarthritis location: unspecified site Osteoarthritis type: primary Qualified Codes: M19.91 - Primary osteoarthritis, unspecified site (8) Sciatica Status: Acute Qualifiers: Laterality: right Qualified Codes: M54.31 - Sciatica, right side (9) Constipation Status: Acute Qualifiers: Constipation type: slow transit constipation Qualified Codes: K59.01 - Slow transit constipation Plan/Intensity of Service Continue with Levaquin for antimicrobial coverage of E coli UTI - may stop Rocephin. Encourage oral intake. Dulcolax suppository to help bowel function. Encourage ambulation. Continue to hold metformin due to resolving sepsis. Liver enzymes decreasing - continue to hold pravastatin. Recheck CBC in am due to leukocytosis. Will check BMP in am due to medications. Check on BC c/s (and repeat culture from this am). Case discussed with nursing and CM. Time spent with pt care 35 minutes. DVT Prophylaxis: SCD'S Code Status Full Code, unverified Hospital Course Summary Disclaimer The hospital course summary below is not to be considered part of the above Progress Note. Hospital Course Summary 01/23 1. UTI acute present on admission: Rocephin, IV fluids, adjust per cultures, cannot exclude the possibility of pyelonephritis given the right flank pain. Patient equated this with sciatica, but there is a chance this is Pyelonephritis , if patient does not rapidly improve, consider CT of the abdomen and pelvis to further assess for obstructive uropathy 2. Sepsis acute present on admission: Lactic acid is 2, IV fluids, repeat sepsis markers in the morning, repeat lactic acid in the morning. 3. Type 2 diabetes mellitus chronic present on admission: Oral agents. Well hold for now. Correctional plan. Adjust as indicated 4. Transaminitis acute present on admission: Not clear if acute or not, IV fluids, repeat labs in the morning, if persists, consider imaging of liver and/ or gallbladder 5. DVT prophylaxis: SCD 01/24 Add Levaquin to Rocephin. Await culture results. If sensitive to Levaquin could consider continuing Levaquin. The patient will likely need 2 weeks of antibiotics in light of her bacteremia. Recheck blood cultures tomorrow. Restart glimepiride, hold metformin for now. Give sliding scale insulin if needed Recheck liver enzymes tomorrow and if improved can likely restart pravastatin CBC with differential and CMP tomorrow Walk-in halls 3 times a day to prevent weakness DC IV fluids if taking by mouth well Monitor for worsening of sciatica, at this time it is improving 01/25 Doing better-feeling less weak and washed out. Was up ambulating this am- strength returning. Did have fever/chills overnight. Appetite decrease, but working on taking plenty of fluids. No nausea or ab pain. Not had stool since admit. Urinating well. Does not some cough/congestion with breathing. No chest pressure or pain. Continue with Levaquin for antimicrobial coverage of E coli UTI - may stop Rocephin. Encourage oral intake. Dulcolax suppository to help bowel function. Encourage ambulation. Continue to hold metformin due to resolving sepsis. Liver enzymes decreasing - continue to hold pravastatin. Recheck CBC in am due to leukocytosis. Will check BMP in am due to medications. Check on BC c/s (and repeat culture from this am). JONE PRESSLEY MD Jan 25, 2017 13:23
--- NOTE | 2017-01-25 13:42 | NUR ---
MUNIRA CM VISITED PT. CM EXPLAINED ROLE AND PROVIDED CONTACT INFORMATION. PT PLANS TO RETURN HOME POST HOSPITAL STAY. PT DENIES NEEDS. PT IS AWARE TO CONTACT CM IF NEEDS ARISE.
--- NOTE | 2017-01-25 18:13 | NUR ---
SHIFT SUMMARY VSS. RA. DENIES PAIN. UP AD RAMU. GOOD URINE OUTPUT. A FEW VERY SMALL BOWEL MOVEMENTS TODAY, BUT NOTHING SUBSTANTIAL, PATIENT STILL FEELS UNCOMFORTABLE. PRODUCTIVE COUGH CONTINUES; TESSALON PEARLS AND THROAT SPRAY GIVEN. GOOD PO INTAKE. AMBULATED IN HALLWAYS SEVERAL TIMES.
[2017-01-26 00:23] VITALS: BP 136/74; PULSE 88; RESP 20; TEMP 99.1; O2SAT 98
[2017-01-26] MEDS: BENZONATATE 100 MG CAPSULE PO PRN (01:36)
[2017-01-26] MEDS: ACETAMINOPHEN 325 MG TABLET PO PRN (01:37)
--- NOTE | 2017-01-26 01:40 | NUR ---
PRN PT WAS GIVEN TYLENOL AND COUGH MEDICATION PER HER REQUEST. WILL CONTINUE TO MONITOR.
[2017-01-26 05:15] LABS: BASOPHILS % (AUTO) 0.2 % (0-2); EOSINOPHILS # (AUTO) 0.1 T/MM3 (0-0.5); EOSINOPHILS % (AUTO) 1.3 % (0-4); HCT - HEMATOCRIT 33.8 % (36-46); HGB - HEMOGLOBIN 11.4 GM/DL (12-16); LYMPHOCYTES % (AUTO) 9.4 % (23-45); MEAN CORPUSCULAR HGB 29.2 UUG (26-34); MEAN CORPUSCULAR HGB CONC(MCHC 33.7 GM/DL (31-37); MEAN CORPUSCULAR VOLUME 86.7 UM3 (80-100); MONOCYTES # (AUTO) 1.4 T/MM3 (0-0.8); NEUTROPHILS #(AUTO)-ABSOLUTE 7.9 T/MM3 (1.8-7.7); NEUTROPHILS % (AUTO) 75.1 % (33-66); WBC - WHITE BLOOD COUNT 10.5 T/MM3 (4.5-11.0)
[2017-01-26 05:22] LABS: ANION GAP 11 MEQ/L (5-15); BUN/CREATININE RATIO 16 RATIO (6-26); CALCIUM 8.8 MG/DL (8.4-10.2); CHLORIDE 106 MEQ/L (98-107); CO2 - CARBON DIOXIDE 24 MEQ/L (22-30); GLOMERULAR FILTRATION RATE 55; GLUCOSE 261 MG/DL (65-110); POTASSIUM 4.5 MEQ/L (3.6-5); SODIUM 141 MEQ/L (134-144)
[2017-01-26 05:24] VITALS: BP 133/81; PULSE 79; RESP 18; TEMP 98.5; O2SAT 95
--- NOTE | 2017-01-26 06:17 | NUR ---
SUMMARY. PT TAKING A SHOWER AT THE MOMENT. PT IS ALERT AND ORIENTED. ABLE TO VOICE NEEDS TO THE STAFFS. UP AN RAMU IN ROOM. DENIED ANY PAIN. PT WAS GIVEN TYLENOL X1 FOR ELEVATED TEMP AND COUGH MEDICATION WHICH HELPED PER THE PATIENT. VSS THIS MORNING. PT WAS EDUCATED ON THE CALL LIGHT USE AND PT SAFETY.
[2017-01-26] MEDS: INSULIN ASPART 100 UNIT/ML SQ PRN ×2 (06:54→11:18)
[2017-01-26 07:07] VITALS: BP 158/73; PULSE 83; RESP 18; TEMP 97.1; O2SAT 99
[2017-01-26] MEDS: BISACODYL 10 MG SUPPOSITORY RECTALLY PRN (07:57)
[2017-01-26] MEDS: GLIMEPIRIDE 4 MG TABLET PO SCH (07:57)
[2017-01-26] MEDS: POLYETHYL.GLYCOL 3350 PACKET 17gm PO SCH (07:57)
[2017-01-26] MEDS: CEFTRIAXONE 1 G in NORMAL SALINE 100 ML IV SCH (07:58)
[2017-01-26 08:00] VITALS: PULSE 83; RESP 18
[2017-01-26] MEDS: LEVOFLOXACIN 750 mg IVPB 750 MG in D5W 150 ML IV SCH (09:15)
--- NOTE | 2017-01-26 10:58 | PNPDOC ---
Subjective Date DATE: 01/26/17 TIME: 10:49 Subjective F/U: Sepsis secondary to E coli UTI, Bacteremia with E coli, UTI Doing well today. Feeling much better. Did have temp elevation last night, but resolved. Eating well without nausea. Had bowel movement. Breathing well. No chest pressure or pain. Ambulating better. Feels ready to go home. Objective Vital Signs Vital signs Vital Signs Date Time Temp Pulse Resp B/P Pulse Ox O2 Delivery O2 Flow Rate FiO2 01/26/17 08:00 83 18 01/26/17 07:07 97.1 158/73 99 Room Air Telemetry Rhythm: Sinus Rhythm Height (Feet): 5 Height (Inches): 1.00 Weight (Kilograms): 58.200 General General Appearance: Alert, Orientated x 3, Well Nourished, Well Developed, Cooperative, No Acute Distress, Looks Stated Age Eyes (Brief) Eyes: FOUND: EOMI, PERRL, NOT FOUND: scleral icterus ENMT (Brief) ENMT: FOUND: hearing intact, mucosa moist Neck (Brief) Neck: FOUND: midline, NOT FOUND: nuchal rigidity, spasm Respiratory (Brief) Respiratory: FOUND: clear all abdul, equal bilaterally, NOT FOUND: rales, wheezes Cardiovascular (Brief) Cardiac: FOUND: regular rate, regular rhythm, NOT FOUND: pedal edema Abdomen (Brief) Abdominal: FOUND: BS normo active x4, soft, NOT FOUND: distended, tender Extremities (Brief) Extremity : Side: Bilateral Extremity: leg Extremity Finding: NOT FOUND: edema Musculoskeletal (Brief) Musculoskeletal: FOUND: extremities move equally, NOT FOUND: deformity, loss of motion, spasm, tenderness Integumentary (Brief) Integumentary: FOUND: dry, warm Neurologic (Brief) Neurological: FOUND: cranial 2-12 intact, motor (intact ) Psychiatric (Brief) Psychiatric: FOUND: alert, attentive, normal affect, oriented Laboratory Laboratory Laboratory Tests 01/25/17 04:49 01/26/17 04:13 Laboratory Tests 01/25/17 04:49 01/26/17 04:13 Microbiology Microbiology Microbiology Date/Time Source Procedure Growth Status 01/25/17 04:50 Peripheral/Iv Start Blood Culture - Preliminary NO GROWTH AFTER 24 HOURS Resulted 01/25/17 04:49 Peripheral/Iv Start Blood Culture - Preliminary NO GROWTH AFTER 24 HOURS Resulted 01/23/17 16:31 Peripheral/Iv Start Gram Stain - Final Resulted 01/23/17 16:31 Blood Culture - Preliminary Escherichia Coli Resulted 01/23/17 16:25 Peripheral/Iv Start Blood Culture - Preliminary NO GROWTH AFTER 48 HOURS Resulted 01/23/17 18:43 Urine, Straight Cath Urine Culture - Final Escherichia Coli Complete Sepsis Diagnostic Criteria Sepsis Confirmed/Suspected Infection: Yes SIRS Criteria: Pulse >= 90 beats/min, WBC >=12,000 or <=4,000 Assessment & Plan Problems: (1) Sepsis Status: Resolved Qualifiers: Sepsis type: Escherichia coli Qualified Codes: A41.51 - Sepsis due to Escherichia coli [e. coli] (2) UTI (urinary tract infection) Status: Acute Qualifiers: Urinary tract infection type: acute cystitis Hematuria presence: with hematuria Qualified Codes: N30.01 - Acute cystitis with hematuria (3) Bacteremia due to Escherichia coli Status: Acute (4) Type II diabetes mellitus Status: Chronic Qualifiers: Diabetes mellitus complication status: without complication Diabetes mellitus intermediate card tender insulin use: without intermediate card tender use Qualified Codes: E11.9 - Type 2 diabetes mellitus without complications (5) Elevated liver enzymes Status: Acute Assessment & Plan: POA (6) Hyperlipidemia Status: Chronic Qualifiers: Hyperlipidemia type: unspecified Qualified Codes: E78.5 - Hyperlipidemia, unspecified Assessment & Plan: On Pravastatin - currently on hold due to elevated LFT. (7) Osteoarthritis Status: Chronic Qualifiers: Osteoarthritis location: unspecified site Osteoarthritis type: primary Qualified Codes: M19.91 - Primary osteoarthritis, unspecified site (8) Sciatica Status: Acute Qualifiers: Laterality: right Qualified Codes: M54.31 - Sciatica, right side (9) Constipation Status: Acute Qualifiers: Constipation type: slow transit constipation Qualified Codes: K59.01 - Slow transit constipation Plan/Intensity of Service Will d/c to home. Continue Cipro 500mg BID for 11 days for antimicrobial coverage. Continue to increase activities and ambulation. Encourage good oral intake of fluids. May restart metformin. Could restart pravastatin in 2 days. F/U with Dr Peoples in 1 week - check CMP at that time. See orders for details. Time spent with pt care and discharge greater than 35 minutes. DVT Prophylaxis: SCD'S Code Status Full Code, unverified Hospital Course Summary Disclaimer The hospital course summary below is not to be considered part of the above Progress Note. Hospital Course Summary 01/23 1. UTI acute present on admission: Rocephin, IV fluids, adjust per cultures, cannot exclude the possibility of pyelonephritis given the right flank pain. Patient equated this with sciatica, but there is a chance this is Pyelonephritis , if patient does not rapidly improve, consider CT of the abdomen and pelvis to further assess for obstructive uropathy 2. Sepsis acute present on admission: Lactic acid is 2, IV fluids, repeat sepsis markers in the morning, repeat lactic acid in the morning. 3. Type 2 diabetes mellitus chronic present on admission: Oral agents. Well hold for now. Correctional plan. Adjust as indicated 4. Transaminitis acute present on admission: Not clear if acute or not, IV fluids, repeat labs in the morning, if persists, consider imaging of liver and/ or gallbladder 5. DVT prophylaxis: SCD 01/24 Add Levaquin to Rocephin. Await culture results. If sensitive to Levaquin could consider continuing Levaquin. The patient will likely need 2 weeks of antibiotics in light of her bacteremia. Recheck blood cultures tomorrow. Restart glimepiride, hold metformin for now. Give sliding scale insulin if needed Recheck liver enzymes tomorrow and if improved can likely restart pravastatin CBC with differential and CMP tomorrow Walk-in halls 3 times a day to prevent weakness DC IV fluids if taking by mouth well Monitor for worsening of sciatica, at this time it is improving 01/25 Doing better-feeling less weak and washed out. Was up ambulating this am- strength returning. Did have fever/chills overnight. Appetite decrease, but working on taking plenty of fluids. No nausea or ab pain. Not had stool since admit. Urinating well. Does not some cough/congestion with breathing. No chest pressure or pain. Continue with Levaquin for antimicrobial coverage of E coli UTI - may stop Rocephin. Encourage oral intake. Dulcolax suppository to help bowel function. Encourage ambulation. Continue to hold metformin due to resolving sepsis. Liver enzymes decreasing - continue to hold pravastatin. Recheck CBC in am due to leukocytosis. Will check BMP in am due to medications. Check on BC c/s (and repeat culture from this am). 01/26 Doing well today. Feeling much better. Did have temp elevation last night, but resolved. Eating well without nausea. Had bowel movement. Breathing well. No chest pressure or pain. Ambulating better. Feels ready to go home. WBC normal. No growth on repeat BC. Will d/c to home. Continue Cipro 500mg BID for 11 days for antimicrobial coverage. Continue to increase activities and ambulation. Encourage good oral intake of fluids. May restart metformin. Could restart pravastatin in 2 days. F/U with Dr Peoples in 1 week - check CMP at that time. See orders for details. JONE PRESSLEY MD Jan 26, 2017 10:53
[2017-01-26] MEDS ORDERED: LORA10TA62 PO (11:00)
[2017-01-26] MEDS ORDERED: CIPR-280 PO (11:00)
[2017-01-26] MEDS ORDERED: GUAI-782 PO (11:00)
--- NOTE | 2017-01-26 12:47 | NUR ---
DISMISSAL PT DISMISSED TO HOME VIA AMBULATION TO VEHICLE WITH AT 1220. PT BELONGINGS PACKED, GO HOME INSTRUCTIONS GIVEN, IVL PULLED, PT DRESSED AND SCRIPTS CALLED TO [facility].
--- NOTE | 2017-01-26 17:27 | NUR ---
CM- LAB C+S RESULTS ARE FAXED TO DR. GRAY.
[2017-01-26] MEDS ORDERED: METFORMIN 1,000 MG TABLET PO SCH (17:30)
--- NOTE | 2017-01-27 11:43 | DSF ---
ADMISSION DIAGNOSIS Sepsis. DISCHARGE DIAGNOSIS Sepsis secondary to E. coli urinary tract infection - resolved. ASSOCIATED CONDITIONS AND COMPLICATIONS Bacteremia with E. coli. E. coli UTI. Elevated liver enzymes. Type 2 diabetes mellitus with elevated sugars secondary to sepsis. Hyperlipidemia. Osteoarthritis. Sciatica. Constipation. PROCEDURES None. CONSULTS None. CLINICAL RESUME Christie Jeffery is a 66-year-old female who presents to [facility] emergency room secondary to fever. She has just been treated for upper respiratory infection that she has been suffering from for the past three weeks. [place] and upon return she had her respiratory troubles. Over the past 3-4 days she has been having increasing bladder spasm as well as frequency of urination. She did run a temperature as high as 104 at home. She presented to outpatient clinic and was referred to emergency department for evaluation. While in the ED, a urine sample was taken which shows evidence of infection. She does have some right CVA tenderness. Lab evaluation is undertaken revealing leukocytosis with white count 14.9 with 82% neutrophils and 6% bands. While her lactate is 2.0, her procalcitonin is elevated at 5.72. In light of the patient's sepsis syndrome secondary to urinary tract infection, hospitalist service was notified and patient was subsequently placed in inpatient admission status at [facility] for further evaluation and treatment. For complete details of the H&P refer to that document. LABORATORY White blood count is 14.9 with 82% neutrophils and 6% bands. Hemoglobin is 12.6 with hematocrit 37.5, MCV 87.6 and platelets 274,000. Serum sodium is 139, potassium 4.4, chloride 104, CO2 23, BUN 20 with creatinine 1.0, GFR 55 and blood glucose 292. Hemoglobin A1c is 7.6%. AST is elevated at 85 with ALT elevated at 111. Total bilirubin is normal at 1.10. Lactate is 2.0 with procalcitonin elevated at 5.72. UA reveals low specific gravity less than or equal to 1.005 with 1+ protein, trace glucose, 2+ blood, positive nitrite, 3+ leukocyte esterase with 30-50 WBC/HPF and 2+ bacteria; urine culture did grow out E. coli without resistance noted. One of two blood cultures taken initially did also grew out E. coli, again with no resistance noted. HOSPITAL COURSE The patient was placed in inpatient admission status at [facility] under the hospitalist service. She was started on Rocephin 1 g IV daily for empiric antimicrobial coverage of urinary pathogens. IV fluids were initiated. Repeat lactate was performed, showing had decreased. In light of patient's sepsis, we did hold metformin. Her other oral agents were continued. SCDs were initiated for DVT prophylaxis. By hospital day #1, she was showing some improvement. Levaquin was added to Rocephin. In light that one of two blood cultures being positive, we are anticipating two weeks of antimicrobial therapy needed. Liver enzymes were starting to trend downward. We did encourage ambulation by having the patient walk in halls t.i.d. IV fluids were able to be discontinued. Remainder of her hospital course was one of good improvement. Oral intake did gradually increase. Bowel function was slow during the hospitalization but with the help of Dulcolax suppository, she did pass bowel movement. Her leukocytosis did defervesce. Strength and functional status made good improvements. We did see persistent elevation of blood sugars during the hospitalization. Most likely this is secondary to resolving sepsis syndrome. Additionally we held metformin until time of discharge. Metformin was held secondary to not only her sepsis syndrome but also elevated liver enzymes. We did also ask the patient to hold her pravastatin for two more days post discharge. She will need CMP repeated in near future. At the time of discharge, she was eating, drinking and breathing well. Her vitals were stable and she was afebrile. She is taking oral in well. She is ambulating without difficulty. In light of her significant improvement, she was able to be discharged to home. Narrative disclaimer: Above narrative is a brief summary of the patient's hospitalization; for complete details of the hospital course, refer to the medical record. DISCHARGE CONDITION Stable/good. DIET 2000 kilocalorie ADA. ACTIVITIES Increase as tolerated. MEDICATIONS Cipro 500 mg p.o. b.i.d. x 22 doses. Mucinex DM b.i.d. p.r.n. cough/congestion. Claritin 10 mg daily p.r.n. allergies. Tylenol 650 mg two tablets q.8h. p.r.n. pain. Cranberry extract daily. Amaryl 4 mg daily. Ibuprofen 600 mg q.6h. p.r.n. pain. Metformin 1000 mg b.i.d. with meals. Simvastatin 40 mg q.h.s. - may start in two days. FOLLOWUP The patient will follow up with Dr. Peoples in one week - recommend recheck CMP at that time. INSTRUCTIONS TO PATIENT Patient was instructed on her diagnosis and treatments provided. She was encouraged to be adherent with medications. We discussed the rationale behind holding pravastatin. We encouraged her to work to increase her strength and functional abilities. She will watch for temperature elevation, worsening shortness of breath or cough as well as significant diarrhea. Should these other problems occur, she could be in contact with her primary provider. If symptoms become quite dire she can present to emergency room for acute evaluation. She voiced understanding of the above. Time spent with discharge greater than 35 minutes. KITTY
--- NOTE | 2017-01-27 15:17 | NUR ---
CM CM LVM
== END 2017-01-26 13:06 | disposition home or self-care (01) | DRG 872 ==
LOC: ED 15:59 → EDHOLD 18:58 → MED 19:20
PROVIDERS: ADMIT Emergency Medicine; ATTEND Hospitalist
DX: A41.51 Sepsis due to Escherichia coli [E. coli] (principal); N39.0 Urinary tract infection, site not specified; E11.9 Type 2 diabetes mellitus without complications; M54.31 Sciatica, right side; E78.5 Hyperlipidemia, unspecified; K59.00 Constipation, unspecified; M19.91 Primary osteoarthritis, unspecified site
CPT/HCPCS: 36415; 80048; 80053; 81001; 82948; 83036; 83605; 84145; 85007; 85025; 85027; 87040; 87086; 87088; 87150; 87186; 87205; 96361; 96365; 96375